=== PATIENT | male | born 1980 | race Caucasian/White ===

== ENCOUNTER 2021-06-21 15:26 | Emergency (ER) | payer MEDICAID, OTHER ==
[~2021-06-21] VITALS: Ht 193 cm; Wt 114.3 kg
[2021-06-21 16:01] VITALS: BP 115/74
--- NOTE | 2021-06-21 17:35 | NUR ---
PT AMBULATED TO BED 3
--- NOTE | 2021-06-21 17:37 | NUR ---
ARIEL MCGRAW AT BEDSIDE EVALUATING PT
[2021-06-21] MEDS ORDERED: HYDROcodone/APAP 5/325 MG 1 TAB TAB PO ONE (17:40)
--- NOTE | 2021-06-21 17:40 | NUR ---
40 Y/O MALE C/O ABSCESS TO SACRAL AREA X3-4 DAYS. PT STATES HE HAD ONE X3 YEARS AGO. PT RATES PAIN 7/10 THAT HE DESCRIBES THROBBING. PT TOOK ASPIRIN AT 0800 WITH MINIMAL RELIEF. AREA IS RED, SWOLLEN AND HARD TO TOUCH. SKIN IS INTACT, NOT OPEN OR DRAINING. PT DENIES FEVER/N/V. PT A/O X4 WITH EVEN AND UNLABORED RESPIRATIONS. PMH:DENIES SX:GALLBLADDER REMOVAL ALLERGIES:PCN
[2021-06-21] MEDS ORDERED: LIDOCAINE MPF 1% 10 MG/ML VIAL INJ ONE (17:50)
--- NOTE | 2021-06-21 18:01 | NUR ---
ARIEL MCGRAW AT BEDSIDE FOR PROCEDURE
[2021-06-21] MEDS ORDERED: SULF-59 PO (18:05)
[2021-06-21] MEDS ORDERED: NAPR-54 PO (18:05)
[2021-06-21 18:19] VITALS: BP 158/84
--- NOTE | 2021-06-21 18:20 | NUR ---
Patient discharged with v/s stable. Written and verbal after care instructions ABOUT MEDICATIONS AND PILONIDAL CYST AND DRAINAGE given and explained. Patient alert, oriented and verbalized understanding of instructions. Ambulatory with steady gait. All questions addressed prior to discharge. ID band removed. Patient advised to follow up with PMD. Rx of NAPROXEN AND BACRIM TABLET given. Patient educated on indication of medication including possible reaction and side effects. Opportunity to ask questions provided and answered.
== END 2021-06-21 18:20 | disposition home or self-care (01) ==
LOC: MED 15:26
DX: L05.91 Pilonidal cyst without abscess (principal); Z79.899 Other long term (current) drug therapy
CPT/HCPCS: 10080; 99284; J2001